=== PATIENT | male | born 1965 | race African-American/Black ===

== ENCOUNTER 2024-07-25 07:37 | Emergency (ER) | payer MEDICAID, OTHER ==
[~2024-07-25] VITALS: Ht 177.8 cm; Wt 81.0 kg
[2024-07-25 07:57] VITALS: O2SAT 98
[2024-07-25] MEDS ORDERED: CYCL5TAB MT (08:41)
[2024-07-25] MEDS: KETOROLAC 30MG/ML VIAL IM ONE (08:54)
[2024-07-25] MEDS: ACETAMINOPHEN 325MG TABLET PO ONE (08:54)
[2024-07-25] MEDS: LIDOCAINE 5% PATCH TOP SCH (08:54)
[2024-07-25 08:58] VITALS: BP 122/70; PULSE 88; RESP 18; TEMP 36.78072; O2SAT 98
== END 2024-07-25 08:58 | disposition home or self-care (01) ==
LOC: ER 07:37
DX: G57.01 Lesion of sciatic nerve, right lower limb (principal); I10 Essential (primary) hypertension
CPT/HCPCS: 96372; 99283; J1885; Z7610 ×2

== ENCOUNTER 2024-09-10 09:13 | Emergency (ER) | payer OTHER ==
[~2024-09-10] VITALS: Ht 167.6 cm; Wt 77.1 kg
[~2024-09-10 09:13] MED LIST: CYCL5TAB3 MT
[2024-09-10 09:16] VITALS: O2SAT 98
[2024-09-10 09:19] VITALS: TEMP 98.4; O2SAT 100
[2024-09-10 10:45] VITALS: BP 137/72; PULSE 90; RESP 16
[2024-09-10] MEDS: IBUPROFEN 400MG TABLET PO ONE (10:45)
== END 2024-09-10 11:44 | disposition home or self-care (01) ==
LOC: ER 09:13
DX: K08.89 Other specified disorders of teeth and supporting structures (principal); I10 Essential (primary) hypertension
CPT/HCPCS: 99281